=== PATIENT | female | born 2000 | race Caucasian/White ===

== ENCOUNTER → 2021-11-06 | Day surgery (SDC) | payer SELFPAY ==
[~2021-11-06] MED LIST: ACETAMINOPHEN 1000 MG/100 ML 100 ML IV ONE; BUPIVACAINE 0.25% 30ML SDV ONE; BUPIVACAINE LIPOSOME/PF 266 MG/20 ML IJ ONE; DEXAMETHASONE SOD PHOS INJ 4 MG/ML SDV ONE; FENTANYL CITRATE/PF 100MCG/2 ML INJ ONE; GENTAMICIN SULFATE 40 MG/ML 2 ML VIAL ONE; HYDROCODON-ACE1 EA11 PO; KETAMINE HCL INJ 50 MG/ML 10 ML VIAL ONE; LIDOCAINE HCL 2% LOCAL INJ 5 ML SDV VIAL INJ ONE; MIDAZOLAM HCL 2 MG/2 ML VIAL ONE; ONDANSETRON HCL INJ 2MG/ML 2ML 2 MG/ML VIAL ONE; POVIDONE IODINE 0.05% 0.05 % ML PO ONE; PROMETHAZINE HCL (IM) 25 MG/ML VIAL IM ONE; PROPOFOL IV EMULSION 10 MG/ML 20 ML VIAL ONE; ROCURONIUM BROMIDE 10 MG/ML 5ML VIAL IV ONE; SEVOFLURANE INHAL SOLN 250 ML PEN BTL ONE; SUGAMMADEX SODIUM 200 MG/2 ML VIAL IV ONE
[2021-11-06 08:55] VITALS: BP 138/76
== END | disposition home or self-care (01) ==
LOC: OR 05:42 → EDBD 07:00
PROVIDERS: ATTEND Plastic Surgery
DX: N64.82 Hypoplasia of breast (principal); Z20.822 Contact with and (suspected) exposure to COVID-19
CPT/HCPCS: 0223U; 19325; 36415; 81025; C1713; C9290; J0131; J0690; J1100; J1580; J2001; J2250; J2405; J2550; J2704; J3010; L8600